=== PATIENT | female | born 1950 | race Caucasian/White ===

== ENCOUNTER → 2017-03-09 | Outpatient (CLI) | payer OTHER ==
[2016-07-17 19:25] VITALS: BP 146/108
[~2017-03-09] MED LIST: HYDR-79 PO; HYDR25TA PO; LEVO88TA4 PO; MELO15TA23 PO; MELO7.5T29; ONDA8TAB12 PO; SIMV20TA3; SULF1TAB24 PO
--- NOTE | 2017-03-09 16:41 | RAD ---
Indication recurrent nasal congestion. Axial images through the paranasal sinuses were obtained. Images were reformatted in the coronal and sagittal planes. Note is made of a CT examination of the head 11/12/2015. The mastoid air cells are normally aerated. The maxillary sinuses are essentially unremarkable. There is a small polyp or retention cyst at the base of the right maxillary sinus. There is no evidence of maxillary sinusitis. Ethmoid air cells are normally aerated and the frontal sinuses appear normal. Sphenoid sinus also appears normal. The visualized brain is unremarkable apart from mild atrophy. There is no significant soft tissue finding. IMPRESSION: Essentially unremarkable imaging of the paranasal sinuses. A small polyp or retention cyst is noted in the right maxillary sinus PQRS Compliance Statement: One or more of the following individualized dose reduction techniques were utilized for this examination: 1. Automated exposure control 2. Adjustment of the mA and/or kV according to patient size 3. Use of iterative reconstruction technique
== END | disposition home or self-care (01) ==
LOC: CT 15:45
PROVIDERS: ATTEND Nurse Practitioner Adult Health
DX: R09.89 Other specified symptoms and signs involving the circulatory and respiratory systems (principal); E03.9 Hypothyroidism, unspecified; M15.9 Polyosteoarthritis, unspecified
CPT/HCPCS: 70486

== ENCOUNTER → 2021-01-21 | Outpatient (CLI) | payer MEDICARE, OTHER ==
[2016-07-17 19:25] VITALS: BP 146/108
[~2021-01-21] MED LIST changes: +HYDR-1179 PO; -HYDR-79 PO; +SIMV20TA18; -SIMV20TA3
--- NOTE | 2021-01-21 12:36 | RAD ---
EXAM: DUAL ENERGY X-RAY ABSORPTIOMETRY (DEXA). HISTORY: Postmenopausal screening. FINDINGS: The lowest measured T-score is -1.3 in the right femoral neck, based on a bone mineral dens ity of 0.785 g/cm^2. Refer to the worksheets for full detail. No comparison examinations are available. IMPRESSION: 1. Low bone mass. Bone mineral density yields a T-score between -1.0 and -2.5. Fracture risk is incre ased. 2. FRAX report: Not calculated. METHODOLOGY: Dual energy x-ray absorptiometry was performed to measure bone mineral density. The foll owing analysis is based on the 2019 Official Positions of the International Society for Clinical Dens itometry: Measurements of the hips and the average of L1-L4 are preferred. When the spine and/or hip cannot be feasibly measured or interpreted, or in the setting of hyperparathyroidism, distal radial bone minera l density may be measured. The lumbar spine T-score is based on the average bone mineral density of L1-L4. In the setting of art ifact or anatomic abnormality, some lumbar levels may be excluded, and the remaining levels used for calculation. A single lumbar level is not used for diagnosis, and if only a single level is available for assessment, another anatomic site will be used to assign a diagnosis. The hip T-score is based on the bone mineral density measurement of the femoral neck or total proxima l femur of either side, whichever is lowest. Bilateral mean values are not used for diagnosis. The forearm T-score is derived from 33% of the distal radius of the nondominant forearm. Electronically signed by: Baylee Barajas MD (01/21/2021 12:34 PM) [id number]
== END ==
LOC: DXRAD 09:55
PROVIDERS: ATTEND Family Medicine
DX: M85.88 Other specified disorders of bone density and structure, other site (principal); M19.042 Primary osteoarthritis, left hand; M19.041 Primary osteoarthritis, right hand; M17.9 Osteoarthritis of knee, unspecified; M16.9 Osteoarthritis of hip, unspecified
CPT/HCPCS: 77080